=== PATIENT | female | born 1955 | race Caucasian/White ===

== ENCOUNTER → 2020-10-08 | Outpatient (CLI) | payer BC ==
[~2020-10-08] MED LIST: ASPI1CHW3 PO; ATOR1TAB19 PO; FAMO20TA5 PO; IBUP200C27 PO; LOSA50TA88 PO; MECL-86 PO
== END ==
LOC: M LABSMTC 09:34
PROVIDERS: ATTEND Anesthesiology
DX: Z01.818 Encounter for other preprocedural examination (principal); Z11.52 Encounter for screening for COVID-19

== ENCOUNTER → 2020-10-11 | Outpatient (CLI) | payer BC ==
--- NOTE | 2020-10-11 13:30 | REP ---
INDICATION: LT BREAST CA,NEED BEFORE SURGERY,INCLUDING AXILLA COMPLETE. COMPARISON: MRI breasts Kajal Shaw 09/27/2020. TECHNIQUE: Real-time sonographic evaluation of entire left breast performed. FINDINGS: In the left breast at the 2 o'clock position approximately 8 cm from the nipple there is a hypoechoic nodule with irregular margins 5 x 4 x 8 mm. Elastography interrogation demonstrates KPa value of 124. This likely corresponds to the previously biopsied lesion, which is seen on the comparison MRI. In the left axilla there are multiple nonspecific lymph nodes present, with echogenic fatty cristy. The largest measures 1.6 x 0.5 x 2.3 cm. Cortical thickness is essentially upper limits of normal at 4 mm. IMPRESSION: BIRADS/ACR category 6, known left breast cancer. At the 2 o'clock position of the left breast approximately 8 cm from the nipple a hypoechoic nodule measures 5 x 4 x 8 mm. Reportedly this has been previously biopsied and represents cancer. There are multiple nonspecific lymph nodes in the left axilla. RECOMMENDATION: The patient is scheduled for ultrasound-guided needle localization of the left breast nodule 10/13/2020. The patient is also scheduled for left breast lymphoscintigraphy. We are attempting to obtain prior ultrasound images to definitively confirm that the nodule seen on today's ultrasound corresponds to the nodule that was biopsied. <Electronically signed by Malik Ramírez > 10/11/20 [id number]
== END ==
LOC: M WHC 10:30
PROVIDERS: ATTEND Surgery
DX: C50.412 Malignant neoplasm of upper-outer quadrant of left female breast (principal)

== ENCOUNTER 2020-10-13 08:46 | Day surgery (SDC) | payer BC ==
[~2020-10-13] VITALS: Ht 167.6 cm; Wt 85.7 kg
[~2020-10-13 08:46] MED LIST changes: +LIDOCAINE 5% (LIDODERM) PATCH TD ONE; +LR 1,000 ML IV ONE; +ceFAZolin SOD 2 GM in IV 1 EA IV ONE
[2020-10-13] MEDS ORDERED: propofoL 200 MG/20 ML VIAL As Ordered ONE (09:38)
[2020-10-13] MEDS ORDERED: ROCURONIUM BROMIDE 50 MG/5 ML VIAL As Ordered ONE (09:38)
[2020-10-13] MEDS ORDERED: LIDOCAINE 2% 100MG/5ML SDV (FOR ANES.) As Ordered ONE (09:38)
[2020-10-13] MEDS ORDERED: fentaNYL 100 MCG/2 ML INJECTION (J3010) As Ordered ONE ×2 (09:39→13:16)
[2020-10-13] MEDS ORDERED: MIDAZOLAM INJ 2MG/2ML VIAL (J2250 PER 1MG) As Ordered ONE (09:40)
[2020-10-13] MEDS ORDERED: SCOPOLAMINE 1MG TRANSDERMAL PATCH TOP ONE (09:40)
[2020-10-13] MEDS ORDERED: LIDOCAINE 1% MDV 20ML VIAL As Ordered ONE (11:01)
[2020-10-13] MEDS ORDERED: LIDOCAINE 1% SDV 30ML VIAL As Ordered ONE (11:57)
[2020-10-13] MEDS ORDERED: METHYLENE BLUE 0.5% (5MG/ML) 10 ML AMP (PROVAYBLUE) As Ordered ONE (11:57)
[2020-10-13] MEDS ORDERED: BUPIVACAINE/EPIN 0.25% 30 ML VIAL As Ordered ONE (11:57)
[2020-10-13] MEDS ORDERED: dexameTHASONE 4 MG/ML 1ML VIAL (J1100 PER 1MG) As Ordered ONE (12:05)
[2020-10-13] MEDS ORDERED: ACETAMINOPHEN 1000MG 100ML IV BTL (OFIRMEV) (J0131 PER 10MG) As Ordered ONE (12:08)
[2020-10-13] MEDS ORDERED: SUGAMMADEX SODIUM 500 MG/5 ML VIAL (BRIDION) As Ordered ONE (13:16)
[2020-10-13] MEDS ORDERED: traMADol 50 MG TAB PO PRN ×2 (14:35)
[2020-10-13] MEDS ORDERED: NS 1,000 ML IV SCH (14:35)
[2020-10-13] MEDS ORDERED: fentaNYL 100 MCG/2 ML INJECTION (J3010) IV PRN (14:45)
[2020-10-13] MEDS ORDERED: LR 1,000 ML IV SCH (14:45)
[2020-10-13] MEDS ORDERED: oxyCODONE 5MG TAB PO PRN (14:45)
[2020-10-13] MEDS ORDERED: ONDANSETRON 4MG/2ML VIAL IV PRN (14:45)
[2020-10-13 16:00] VITALS: BP 131/65
--- NOTE | 2020-10-13 16:19 | REP ---
INDICATION: SENTINAL NODE LEFT BREAST. COMPARISON: None. TECHNIQUE: The procedure was performed under the personal supervision of Dr. Ramírez. The risks and benefits of the procedure were explained to the patient and informed consent was obtained. The patient has a history of a 5 x 4 x 8 mm hypoechoic nodule in the 2 o'clock position of the left breast seen on a previous ultrasound dated 10/11/2020. The left breast nodule was localized using ultrasound guidance. The skin was prepped and draped in a sterile fashion. 1% lidocaine was used as a local anesthetic. Using ultrasound guidance a localization wire was inserted and advanced into the nodule. The patient tolerated the procedure well and there were no immediate complications. FINDINGS: None IMPRESSION: Ultrasound-guided left breast needle localization. <Electronically signed by Nate Adkins > 10/13/20 1607 <Electronically signed by Malik Ramírez > 10/13/20 1616
--- NOTE | 2020-10-13 16:21 | REP ---
INDICATION: LEFT BREAST CA. COMPARISON: None. TECHNIQUE: The procedure was performed under the direct supervision of Dr. Ramírez. The images were reviewed with Dr. Ramírez. The risk and benefits of the procedure were explained to the patient and informed consent was obtained. Using topical anesthetic and sterile technique 0.924 mCi of technetium 99 filtered sulfur colloid was injected subdermally in 8 fractionated periareolar injections. Images obtained 1 hour after the injection demonstrate an oval dominant focus in the left axilla. FINDINGS: None IMPRESSION: Left breast lymphoscintigraphy. There is an oval dominant focus of uptake in the left axilla. <Electronically signed by Nate Adkins > 10/13/20 [id number] <Electronically signed by Malik Ramírez > 10/13/20 0531
--- NOTE | 2020-10-13 17:53 | REP ---
INDICATION: SENTINAL NODE LEFT BREAST. COMPARISON: Ultrasound 09/01/2020, MRI 09/27/2020. TECHNIQUE: Specimen radiograph performed following lumpectomy left breast. FINDINGS: Biopsy clip is seen within the surgical specimen, along with the localizing needle and wire. Vague nodular opacity is seen in the region of the clip, but the margins appear to be largely obscured by adjacent dense fibroglandular tissue. IMPRESSION: Successful lumpectomy of previously biopsied nodule left breast. RECOMMENDATION: Clinical follow-up. <Electronically signed by Malik Ramírez > 10/13/20 1604
--- NOTE | 2020-10-14 16:47 | ECGEPIP ---
[facility] Test Date: 2020-10-13 Pat Name: GEOVANI ARTIS Department: Room: - Gender: Female Rosin Barrel Filler: : 1955 Requested By: Jules Castaneda Order Number: [id number] Reading MD: Jon Messina Measurements Intervals [place] Rate: 61 P: 31 OH: 150 QRS: 5 QRSD: 70 T: 43 QT: 422 QTc: 424 Interpretive Statements V2 in V3 switched normal sinus rhythm otherwise normal tracing No prior tracing for comparison Electronically Signed on 10-14-2020 16:47:08 EDT by Jon Messina
--- NOTE | 2020-10-25 07:38 | RO ---
OPERATIVE NOTE DATE OF OPERATION: 10/13/2020 PREOPERATIVE DIAGNOSIS: Left breast cancer. POSTOPERATIVE DIAGNOSIS: Left breast cancer. PROCEDURE: Left quadrantectomy with sentinel node biopsy. SURGEON: Bradford Clements Jr, MD [employer] DRAFTSPERSON: ANESTHESIA: General endotracheal anesthesia. EBL: Minimal. FLUIDS: Crystalloid. FINDINGS: Two groups of lymph nodes were removed, were two hot sentinel nodes greater than 3000 count and the background count was approximately 50-57. Postoperative mammogram revealed good postoperative removal of the breast lesion, good placement of the wire. DESCRIPTION OF PROCEDURE: The patient was brought to the operating room and was given general anesthesia. After adequate anesthesia was established the patient was prepped and draped in usual sterile fashion. The patient had preoperative ultrasound-guided needle localization in the left breast lesion and preoperatively I also injected some Lymphazurin/blue dye 3 mL in the periareolar position. After the patient was prepped and draped in usual sterile fashion a curvilinear incision on the left breast was made both medial and lateral to the wire and skin flaps were made both superior and inferiorly using electrocautery and sharp and blunt dissection. Eventually a large core of tissue was removed from this area with concerns of making roger that I had more than adequate margins and was able to visualize the wire during the procedure. Thus, after adequately taking the dissection down to the chest wall, and going circumferentially, using electrocautery this was pulled off posteriorly and the tissue was placed in the imaging box and imaging revealed good placement of the wire with the lesion within this area nicely centered. The area was packed with gauze and a small axillary incision over the preoperatively identified hot area was made with skin knife. Blunt dissection was carried through the skin, dermis and underlying subcutaneous tissue through the clavipectoral fascia down into the axillary fat pad. Using the Neoprobe the blue lymph node was the first one I was able to identify and was hot lymph node and I removed this with some surrounding fat around it and this indeed revealed counts over 3000. However, there was additional hot spot in the axilla just inferior to this and once again this was identified. However, it was not a blue node and this was removed with some surrounding fat as well and was removed with electrocautery. The area was packed and once again counts on this were over 3000. Background counts then were performed and were approximately 50. Both sites were copiously irrigated until clear. Good hemostasis was achieved with electrocautery. The axillary incision was closed first with 3-0 Vicryl dermal layer and 4-0 Vicryl subcuticular. The breast site was then closed after creating good hemostatic base, irrigated and then 3-0 Vicryl was used to approximate the subcutaneous tissue and dermis and 4-0 Vicryl was used to approximate the skin. Steri-Strips and dry, sterile dressing were applied to both sites. The patient was awakened, extubated, brought to recovery room awake, alert, hemodynamically stable. Sponge and needle counts correct x2.
== END 2020-10-13 16:13 | disposition home or self-care (01) ==
LOC: M SDC 08:46
PROVIDERS: ATTEND Surgery
DX: C50.012 Malignant neoplasm of nipple and areola, left female breast (principal); Z17.0 Estrogen receptor positive status [ER+]; I10 Essential (primary) hypertension; E78.00 Pure hypercholesterolemia, unspecified; K21.9 Gastro-esophageal reflux disease without esophagitis; M19.90 Unspecified osteoarthritis, unspecified site; R06.83 Snoring; Z79.899 Other long term (current) drug therapy; Z79.82 Long term (current) use of aspirin
CPT/HCPCS: 19125; 38525; 76942; 78195; 88307; 93005; A9541; J0131; J0690; J1100; J2250; J3010; Q9968

== ENCOUNTER → 2020-12-01 | Outpatient (CLI) | payer BC ==
[~2020-12-01] MED LIST changes: -LIDOCAINE 5% (LIDODERM) PATCH TD ONE; -LR 1,000 ML IV ONE; -ceFAZolin SOD 2 GM in IV 1 EA IV ONE
--- NOTE | 2020-12-01 21:35 | ECGEPIP ---
[facility] Test Date: 2020-12-01 Pat Name: GEOVANI ARTIS Department: Room: - Gender: Female Guest Experience Captain: rf : 1955 Requested By: ROOSEVELT SOLORZANO MDFRCP Order Number: [id number] Reading MD: Sanket Doyle Measurements Intervals [place] Rate: 61 P: 36 MT: 150 QRS: 18 QRSD: 68 T: 29 QT: 408 QTc: 410 Interpretive Statements Normal sinus rhythm Low voltage QRS Subtle nonspecific ST-T abnormality. Electronically Signed on 12-01-2020 21:34:47 EDT by Sanket Doyle
== END ==
LOC: M CARPUL 11:38
PROVIDERS: ATTEND Internal Medicine Hematology & Oncology
DX: C50.919 Malignant neoplasm of unspecified site of unspecified female breast (principal)

== ENCOUNTER → 2020-12-17 | Outpatient (CLI) | payer BC ==
[~2020-12-17] MED LIST changes: +ARIM1TAB5 PO; +CALC1TAB63 PO
--- NOTE | 2020-12-17 10:50 | RADONC.CN ---
Radiation Oncology Hx/Consult Radiation Oncology Consult Date of Service: Dec 17, 2020 Pt Identifier Kanwal Mix is a 65 year old female with screening mammogram detected left breast cancer pT1bN0(sn)M0 ER/WY+ HER2- Grade 2. She is s/p lumpectomy and SLNB ([facility]) on 10/14/20 c/b surgical site infection/sepsis, now fully recovered. She is seen for consideration of adjuvant RT. Diagnosis/Treatment History Oncologic History 2020: Mammogram ([facility]) with left breast abnormality @ 3:00 09/01/20: Biopsy showing IDC grade 2 ER/WY+ HER2- 09/17/20: EOD MRI ([facility]) negative for regional or contralateral disease 10/14/20: Lumpectomy and SLNB pT1bN0(sn)M0 margins negative Breast history: 1st @ 21 Menses @ 14 Menopause @ 52 5 years OCP use No HRT No IVF Interval History Here with her supportive sister. They are [place] natives ([place]). Kanwal feels well today, somewhat anxious to finish up this phase of treatment. She has no pain or swelling on the left side. She did have a complicated post-operative course with a surgical site infection and sepsis for which she was admitted to [facility] for treatment. Currently her appetite and energy levels are stable. She has no additional complaints today. Past Medical History: HTN HPL Past Surgical History: Left foot bunion Hysterectomy Tonsillectomy Family History: Father pancreatic cancer Brother leukemia Social History: Never smoker Does not drink to excess Allergies / Meds Allergies: Coded Allergies: No Known Allergies (Unverified , 10/06/20) Home Meds Active Scripts Calcium Carbonate/Vitamin D3 (Calcium 600-Vit D3 400 Tablet) 1 Each Tablet, 1 TAB PO one daily for prophylactic on arimidex MDD one , #30 TAB 6 Refills Prov:SOLORZANO,ROOSEVELT FRCP 12/06/20 Anastrozole (Arimidex) 1 Mg Tablet, 1 TAB PO DAILY for 30 Days, #30 TAB Prov:SOLORZANO,ROOSEVELT MDFRCP 12/06/20 Reported Medications Ibuprofen (Ibuprofen) 200 Mg Capsule, 600 MG PO PRN PRN for PAIN, CAP 10/06/20 Meclizine HCl (Meclizine HCl) 25 Mg Tablet, 25 MG PO PRN PRN for DIZZINESS, TAB 10/06/20 Famotidine (Famotidine) 20 Mg Tablet, 40 MG PO DAILY, TAB 10/06/20 Aspirin (Aspirin) 81 Mg Tab.chew, 81 MG PO DAILY 10/06/20 Atorvastatin Calcium (Atorvastatin Calcium) 10 Mg Tablet, 10 MG PO DAILY, TAB 10/06/20 Losartan Potassium (Losartan Potassium) 50 Mg Tablet, 50 MG PO DAILY, TAB 10/06/20 Review of Systems Constitutional: Denies: Chills, Fever, Night Sweats Eyes: Denies: Pain, Vision change HEENT: Denies: Head Aches, Dysphagia, Sore Throat Skin: Denies: Rash, Lesions, Bruising Pulmonary: Denies: Dyspnea, Cough Cardiovascular: Denies: Chest Pain, Palpitations, Edema Breast: Denies: New Breast Lumps / Masses, Nipple Retraction, Nipple Discharge, Breast Skin Changes, Breast Pain or Tenderness, Other Breast Complaints Gastrointestinal: Denies: Nausea, Vomiting, Abdominal Pain, Diarrhea Genitourinary: Denies: Dysuria, Frequency, Incontinence Hematologic: Denies: Bruising, Petecchia, Enlarged Lymph Nodes Musculoskeletal: Denies: Neck pain, Back pain Neurological: Denies: Weakness, Numbness, Incoordination, Change in Speech, Confusion, Seizures, Other Symptoms Psych: Reports: Mood Normal; Denies: Memory Issues, Thoughts of Self Harm Vital Signs Wt 182 lbs T 98 P 88 RR 18 BP 154/90 O2 100% Pain 0 Fatigue 0 General Exam: Positive: Alert, Cooperative, No Acute Distress Eye Exam: Positive: PERRLA, EOMI ENT EXAM: Positive: Mucous membr. moist/pink, Pharynx Normal Neck Exam: Negative: Thyromegaly, Lymphadenopathy Chest Exam: Positive: Normal air movement; Negative: Rales, Rhonchi, Wheezing Heart Exam: Positive: Rate Normal, Regular Rhythm Breast Exam: Positive: Symmetric Bilaterally; Negative: Lumps or Masses (Left lateral breast lumpectomy and axillary incisions well healed. No palpable surgical site on left. ), Nipple Retraction, Nipple Discharge, Skin Changes, Other Breast Findings Extremity Exam: Negative: Edema, Tenderness Skin Exam: Positive: Nl turgor and temperature; Negative: Rash Neuro Exam: Positive: Normal Gait, Normal Speech, Cranial Nerves 3-12 NL Psych Exam: Positive: Mental status NL, Mood NL, Memory Intact Diagnostic and Laboratory Diagnostic Review Radiologic images, relevant labs and pathology reports were personally reviewed and discussed with Ms. Mix. Assessment and Plan Impression Ms. Mix is a 65 year old female with a history of screening mammogram detected left breast cancer pT1bN0(sn)M0 ER/WY+ HER2- Grade 2. She is s/p lumpectomy and SLNB ([facility]) on 10/14/20 c/b surgical site infection/sepsis, now fully recovered. She is seen for consideration of adjuvant RT. Stage Left lower outer breast cancer pT1bN0(sn)M0 ER/WY+ HER2- Grade 2 stage IA Performance Status ECOG 0 Plan We had an extensive discussion with Ms. Mix regarding the diagnosis at hand and available therapeutic options. She is doing well now fully recovered from her post-operative sepsis. She had an early stage tumor completely excised, ER/WY+. She is taking and AI already with no side effects. Given this favorable pathology and her age I explained that she would be a great candidate for APBI. I detailed two regimens for this 26 Gy in 5 fractions per FAST FORWARD and 40 Gy in 15 fractions per IMPORT LOW, versus the alternative of WBI + boost which I think in her case would be overtreatment. She is enthusiastic about the shortest possible schedule and therefore would like to pursue the FAST FORWARD regimen. We discussed the logistics of receiving radiation therapy in detail including the need for a 1-time planning session. This can occur the week of 12/27/20 (she is going on vacation next week) We reviewed the side effects of treatment including fatigue, skin reaction and late fibrosis. After discussing the risks, benefits and alternatives to radiation therapy, Ms. Mix was amenable to pursuing radiotherapy. All questions were answered to the patient's satisfaction. We instructed the patient that if there were any questions,concerns or changes in clinical status in the interim to contact us. Recommendations APBI 26 Gy in 5 fractions with VMAT Simulation week of 12/27/20 Billing Statement Total time of [46] minutes was spent preparing for the visit [3], obtaining HPI [5], examining the patient [4], reviewing diagnostic tests [3], discussing management options [20], coordinating care [2], and writing this note [9]. LORETTA QUIJANO MD Dec 17, 2020 10:50
== END ==
LOC: M ONCR 08:40
PROVIDERS: ATTEND General Practice
DX: C50.912 Malignant neoplasm of unspecified site of left female breast (principal); Z79.82 Long term (current) use of aspirin; Z79.899 Other long term (current) drug therapy; Z80.8 Family history of malignant neoplasm of other organs or systems

== ENCOUNTER 2020-12-27 10:10 | Outpatient (RCR) | payer BC ==
[2021-01-03] MEDS ORDERED: ARIM1TAB5 PO (14:18)
== END 2021-01-08 ==
LOC: M ONCR 10:10
PROVIDERS: ATTEND General Practice
DX: C50.512 Malignant neoplasm of lower-outer quadrant of left female breast (principal)

== ENCOUNTER 2021-01-14 12:42 | Outpatient (RCR) | payer BC ==
[~2021-01-14 12:42] MED LIST changes: +LOSA50TA28 PO; -LOSA50TA88 PO
[2021-02-01] MEDS ORDERED: ANAS1TAB2 PO (13:38)
[2021-02-07] MEDS ORDERED: ANAS1TAB2 PO (09:26)
== END 2021-02-08 ==
LOC: M ONCR 12:42
PROVIDERS: ATTEND General Practice
DX: C50.512 Malignant neoplasm of lower-outer quadrant of left female breast (principal)

== ENCOUNTER → 2021-07-20 | Outpatient (CLI) | payer MEDICARE, BC ==
[~2021-07-20] MED LIST changes: +ANAS1TAB2 PO
== END ==
LOC: M ONCR 09:38
PROVIDERS: ATTEND General Practice
DX: C50.512 Malignant neoplasm of lower-outer quadrant of left female breast (principal)